=== PATIENT | female | born 1950 | race Caucasian/White ===

== ENCOUNTER 2017-02-18 16:59 | Emergency (ER) | payer MEDICAID, OTHER ==
[2017-02-18 17:13] VITALS: TEMP 97.7
--- NOTE | 2017-02-18 17:58 | C.PDOC ---
History Of Present Illness 66 y/o female brought to ED by EMS with complaints of facial swelling status post trip and fall while crossing the street just prior to arrival. Patient states she tripped on street and fell forward landing on hands and then face. Denies loc, dizziness, nausea, vomiting, change in sensation, visual changes or any other complaints at this time. Denies taking blood thinners. - HPI Time Seen by Provider: 02/18/17 17:25 Chief Complaint (Nursing): Trauma History Per: Patient, [employer] Se[employer] History/Exam Limitations: no limitations Onset/Duration Of Symptoms: Mins Location Of Injury: Right: Head Past Medical History Reviewed: Historical Data, Nursing Documentation, Vital Signs Vital Signs: Last Vital Signs Temp 97.7 F 02/18/17 19:49 Pulse 66 02/18/17 19:49 Resp 18 02/18/17 19:49 BP 137/84 02/18/17 19:49 Pulse Ox 99 02/18/17 19:49 - Medical History PMH: Diabetes, HTN, Hypercholesterolemia Surgical History: Appendectomy Family History: States: No Known Family Hx - Social History Hx Tobacco Use: No Hx Alcohol Use: No Hx Substance Use: No - Immunization History Hx Tetanus Toxoid Vaccination: Yes (2015) Hx Influenza Vaccination: Yes (12/2016) Hx Pneumococcal Vaccination: Yes Review Of Systems Constitutional: Negative for: Fever, Chills Eyes: Negative for: Vision Change Gastrointestinal: Negative for: Nausea, Vomiting Musculoskeletal: Positive for: Hand Pain Neurological: Positive for: Headache. Negative for: Weakness, Numbness, Dizziness Physical Exam - Physical Exam Appears: Non-toxic, No Acute Distress Skin: Warm, Dry, No Rash Head: Tenderness, Swelling (right side facial swelling), Abrasion (to right side of forehead) Eye(s): bilateral: PERRL, EOMI, Other ((+)b/l pterygium ) Ear(s): Bilateral: Normal Nose: Normal Oral Mucosa: Moist Throat: Normal, No Erythema, No Exudate Neck: Normal ROM, Supple Chest: Symmetrical Cardiovascular: Rhythm Regular Respiratory: Normal Breath Sounds, No Rales, No Rhonchi, No Wheezing Gastrointestinal/Abdominal: Soft, No Tenderness, No Guarding, No Rebound Extremity: Normal ROM, No Tenderness, Capillary Refill (<2 seconds), No Deformity Pulses: Left Radial: Normal, Right Radial: Normal Neurological/Psych: Oriented x3, Normal Speech, Normal Motor, Normal Sensation Gait: Steady ED Course And Treatment O2 Sat by Pulse Oximetry: 100 (RA) Pulse Ox Interpretation: Normal Progress Note: Tylenol ordered . On re-evaluation, pt notes she feels well. Denies any headache, dizziness, or visual changes. No vomiting. Pt requests to be discharge. Son at bedside, understands signs and symtpoms of concern. Clinical Data Management Manager used to ensure understanding. Disposition - Disposition Disposition: HOME/ ROUTINE Disposition Time: 19:40 Condition: STABLE Additional Instructions: Apply ice. Follow up with your doctor in 1-2 days. Instructions: Head Injury (ED) Forms: 1Lay ([place]izen [place]) Print Language: PASHTO - Clinical Impression Clinical Impression: Facial contusion - PA / WIRER / Resident Statement MD/DO has reviewed & agrees with the documentation as recorded. - Scribe Statement The provider has reviewed the documentation as recorded by the Cjibemilio Zelaya All medical record entries made by the Cjibemilio were at my direction and personally dictated by me. I have reviewed the chart and agree that the record accurately reflects my personal performance of the history, physical exam, medical decision making, and the department course for this patient. I have also personally directed, reviewed, and agree with the discharge instructions and disposition.
[2017-02-18 18:37] VITALS: RESP 18
--- NOTE | 2017-02-18 19:04 | CT ---
PROCEDURE: CT HEAD WITHOUT CONTRAST. HISTORY: trauma COMPARISON: None available. TECHNIQUE: Axial computed tomography images were obtained through the head/brain without intravenous contrast. Radiation dose: Total exam DLP = 760.8 mGy-cm. This CT exam was performed using one or more of the following dose reduction techniques: Automated exposure control, adjustment of the mA and/or kV according to patient size, and/or use of iterative reconstruction technique. FINDINGS: HEMORRHAGE: No intracranial hemorrhage. BRAIN: No mass effect or edema. The ba-white matter differentiation appears intact. Please note that MRI with diffusion imaging is more sensitive in the detection of acute ischemic event. VENTRICLES: No hydrocephalus. CALVARIUM: Unremarkable. PARANASAL SINUSES: Unremarkable as visualized. No significant inflammatory changes. MASTOID AIR CELLS: Unremarkable as visualized. No inflammatory changes. OTHER FINDINGS: Right frontal scalp hematoma. Right preseptal soft tissue swelling. IMPRESSION: Right frontal scalp hematoma. Right preseptal soft tissue swelling. No acute intracranial pathology identified.
--- NOTE | 2017-02-18 19:36 | CT ---
EXAM: CT Maxillofacial Without Intravenous Contrast EXAM DATE/TIME: 02/18/2017 6:21 PM CLINICAL HISTORY: 66 years old, female; Injury or trauma; Fall; Initial encounter; Abrasion and swelling; Eyelid and forehead; Uppeupper rightr right and lower right TECHNIQUE: Axial computed tomography images of the face without intravenous contrast. All CT scans at this facility use one or more dose reduction techniques, viz.: automated exposure control; ma/kV adjustment per patient size (including targeted exams where dose is matched to indication; i.e. head); or iterative reconstruction technique. Coronal and sagittal reformatted images were created and reviewed. COMPARISON: There are no prior studies for comparison. FINDINGS: Bones/joints: Visualized cranial vault is intact. There are no facial bone fractures. Soft tissues: There is a right frontal scalp hematoma. Deep soft tissues are unremarkable. Orbits: Globes are intact.Retrobulbar structures are symmetric. 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 There is mucoperiosteal thickening in left maxillary sinus. There is no acute sinusitis. Brain: No focal abnormalities are seen in visualized portion of the brain. IMPRESSION: Right frontal scalp hematoma, no underlying fracture; no orbital fractures
[2017-02-18 19:49] VITALS: BP 137/84; PULSE 66
[2017-02-18 21:39] VITALS: O2SAT 100
== END 2017-02-18 19:57 | disposition home or self-care (01) ==
LOC: C.ER 16:59
DX: S00.83XA Contusion of other part of head, initial encounter (principal); W01.0XXA Fall on same level from slipping, tripping and stumbling without subsequent striking against object, initial encounter; Y92.410 Unspecified street and highway as the place of occurrence of the external cause

== ENCOUNTER 2017-03-11 10:57 | Emergency (ER) | payer MEDICAID ==
--- NOTE | 2017-03-11 12:53 | C.PDOC ---
History Of Present Illness 66 y/o female with hx dm, htn, dyslipidemia, and circulation problems, on asa and ? antiplatelet aggregator/blood thinner. presents to ED with cc of right forehead pain and swelling (decreased from initial injury on 02/18), with burning sensation to skin. pt sts she had some pus coming from wound at one point but not now. pt also c/o dizziness, worse when standing up, better with supine position, persistent started about 4 days after injury, feels unsteady on feet. . pt has not followed up with pmd. pt sts it 'feels like something broken in her head.' Time Seen by Provider: 03/11/17 11:16 Chief Complaint (Nursing): Dizziness/Lightheaded History Per: Patient History/Exam Limitations: no limitations, language barrier (translators Jessica Coley (#[id number]) wilfred Otero([place]) #[id number] used for translation. ) Onset/Duration Of Symptoms: Days (14+) Current Symptoms Are (Timing): Still Present Activity At Onset Of Symptoms: Standing, Had Just Stood up, Change In Head Position Seizure Or Post-ictal Symptoms: None Possible Causative Factor(s): Vertigo, Other (recent head injury) Fall Associated With With Symptoms: No - Symptoms Of CVA Associated Symptoms: denies: Impaired Speech, Seizure Activity, New Confusion Recent Aspirin Use: Yes (Last Taken) Current Coumadin Use?: Unknown Recent Head Trauma: Yes Past Medical History Reviewed: Historical Data, Nursing Documentation, Vital Signs Vital Signs: Last Vital Signs Temp 97.6 F 03/11/17 13:37 Pulse 60 03/11/17 13:37 Resp 18 03/11/17 13:37 BP 102/67 03/11/17 13:37 Pulse Ox 95 03/11/17 20:23 - Medical History PMH: Diabetes, HTN, Hypercholesterolemia Surgical History: Appendectomy Family History: States: Unknown Family Hx - Social History Hx Tobacco Use: No Hx Alcohol Use: No Hx Substance Use: No - Immunization History Hx Tetanus Toxoid Vaccination: Yes (2015) Hx Influenza Vaccination: Yes Hx Pneumococcal Vaccination: Yes Review Of Systems Constitutional: Negative for: Fever, Chills ENT: Negative for: Ear Pain Cardiovascular: Negative for: Chest Pain, Palpitations Respiratory: Negative for: Cough, Shortness of Breath Gastrointestinal: Negative for: Nausea, Vomiting, Abdominal Pain Musculoskeletal: Positive for: Other (right sided headache). Negative for: Neck Pain, Shoulder Pain Neurological: Positive for: Dizziness. Negative for: Weakness, Numbness Physical Exam - Physical Exam Appears: Non-toxic, No Acute Distress Skin: Normal Color, Warm, Dry Head: Normacephalic, Tenderness (righth forehead), Swelling (small area of mild swelling and tenderness to right forehead with overlying scabbed area, no erythema, warmth, discharge. ) Eye(s): bilateral: Normal Inspection, PERRL, EOMI (no nystagmus, right gaze elicits dizzness), Other (no nystagmus. dizziness elicited with rightward gaze) Ear(s): Bilateral: Normal Oral Mucosa: Moist Neck: Supple Chest: Symmetrical, No Deformity, No Tenderness Cardiovascular: Rhythm Regular, No Murmur Respiratory: Normal Breath Sounds, No Rales, No Rhonchi, No Wheezing Gastrointestinal/Abdominal: Soft, No Tenderness Extremity: Normal ROM, Capillary Refill (less than 2 seconds ) Neurological/Psych: Oriented x3, Normal Speech, Normal Cognition, Normal Cranial Nerves, No Cerebellar Signs, Normal Motor, Normal Sensation, Other ( [id number] test normal, MORENO intact, negative pronator drift. pt feels unsteady when standing. ) Other Neurological Findings: Other (patient experiences dizziness when asked to stand) ED Course And Treatment O2 Sat by Pulse Oximetry: 95 Medical Decision Making Medical Decision Making: pts fs 342, did not take her morning dose of metformin, will give in ed. 240 pm pt with dizziness starting 4 days after head injury, and right forehead pain and headache. pt on asa and possible blood thinner; repeat head ct neg. pt given meclizine and reports dizziness improved. patient able to ambulate comfortably. concussion symptoms discussed with patient via parts interpreter Meño Otero #[id number]. pt offered walker and declined. pt advised to f/u with pmd and also with neurologist. pt expresses understanding. Disposition Counseled Patient/Family Regarding: Studies Performed, Diagnosis, Need For Followup, Rx Given - Disposition Referrals: Satinder Miller MD [Staff Provider] - Luis Barry MD [Non-Staff] - [facility] [Outside] Disposition: HOME/ ROUTINE Disposition Time: 14:42 Condition: IMPROVED Additional Instructions: Por favor tome meclizine (para mareos) segn lo prescrito y tylenol para el dolor. Por favor, cinthya un seguimiento con house mdico alvarez pronto ming sea posible , y tambin con el Dr. Miller, el neurlogo. Llame al servicio de conserjera para obtener ayuda con abram oliver de neurologa si no puede hacer abram con el Dr. Miller. Regrese a ER para cualquier sntoma que empeore. Please take meclizine (for dizziness) as prescribed and tylenol for pain. Please follow up with your doctor as soon as possible, and also with Dr Miller, the neurologist. Call [facility] service for help with a neurology appointment if unable to make one iwth Dr Miller. Return to ER for any worsening symptms. Prescriptions: Acetaminophen [Tylenol 325mg tab] 650 mg PO Q6 #50 tab Meclizine [Meclizine*] 25 mg PO Q8 #30 tab Instructions: Post Concussion Syndrome (ED), Dizziness (ED) Forms: Gen Discharge Inst U[place]ayan, ZhongSou ([place]) Print Language: URDU - Clinical Impression Clinical Impression: Post-concussion vertigo, Headache - PA / RISK ASSESSOR / Resident Statement MD/DO has reviewed & agrees with the documentation as recorded. - Scribe Statement The provider has reviewed the documentation as recorded by the Scribe (Chay Cunha) All medical record entries made by the Scribe were at my direction and personally dictated by me. I have reviewed the chart and agree that the record accurately reflects my personal performance of the history, physical exam, medical decision making, and the department course for this patient. I have also personally directed, reviewed, and agree with the discharge instructions and disposition.
--- NOTE | 2017-03-11 12:56 | CT ---
PROCEDURE: CT HEAD WITHOUT CONTRAST. HISTORY: dizzy s/p fall 2 weeks ago, on asa and ?plavix COMPARISON: 02/18/2017 TECHNIQUE: Axial computed tomography images were obtained through the head/brain without intravenous contrast. Radiation dose: Total exam DLP = 781.92 mGy-cm. This CT exam was performed using one or more of the following dose reduction techniques: Automated exposure control, adjustment of the mA and/or kV according to patient size, and/or use of iterative reconstruction technique. FINDINGS: HEMORRHAGE: No intracranial hemorrhage. BRAIN: No mass effect or edema. No atrophy or chronic microvascular ischemic changes. VENTRICLES: Unremarkable. No hydrocephalus. CALVARIUM: No calvarial fracture. Markedly decreased size of right frontal scalp hematoma compared to prior CT examination. No orbital hemorrhage. PARANASAL SINUSES: Unremarkable as visualized. No significant inflammatory changes. MASTOID AIR CELLS: Unremarkable as visualized. No inflammatory changes. OTHER FINDINGS: None. IMPRESSION: No intracranial hemorrhage. Right frontal scalp hematoma markedly decreased in size. Otherwise unremarkable examination.
[2017-03-11 13:37] VITALS: BP 102/67; PULSE 60; RESP 18; TEMP 97.6
[2017-03-11 14:40] VITALS: O2SAT 95
== END 2017-03-11 15:03 | disposition home or self-care (01) ==
LOC: C.ER 10:57
DX: R51 Headache (principal); R42 Dizziness and giddiness; I10 Essential (primary) hypertension; E11.9 Type 2 diabetes mellitus without complications; E78.00 Pure hypercholesterolemia, unspecified

== ENCOUNTER 2017-05-24 08:11 | Inpatient (IN) | payer MEDICAID ==
--- NOTE | 2017-05-24 08:44 | C.PDOC ---
History Of Present Illness 66 yo female w/PMHx of HTN, NIDDM, OA, gastritis, hyperlipidemia, depression was sent from Clinic for evaluation of Left knee pain associated with Left lower leg pain, swelling redness gradually developed for past week. Pt describes pain is mostly over medial aspect left knee radiating down to Left lower leg, worse with weight bearing. Otherwise, pt denies recent illness, known trauma or injury to left knee/leg, headache, dizziness, neck pain, CP, SOB , dyspnea, diaphoresis, palpitation, denies abd. pain, N/V, back pain, deformity , weakness, sensory or vascular deficits to left leg. Ambulate to Ed for evaluation, not in any apparent distress. Time Seen by Provider: 05/24/17 08:15 Chief Complaint (Nursing): Lower Extremity Problem/Injury History Per: Patient Onset/Duration Of Symptoms: Gradual Past Medical History Reviewed: Historical Data, Nursing Documentation, Vital Signs Vital Signs: Last Vital Signs Temp 98 F 05/24/17 12:25 Pulse 77 05/24/17 12:25 Resp 18 05/24/17 12:25 BP 128/64 05/24/17 12:25 Pulse Ox 96 05/24/17 12:25 - Medical History PMH: Diabetes, Gastritis ("chronic"), HTN, Hypercholesterolemia, Osteoporosis Surgical History: Appendectomy Family History: States: Unknown Family Hx - Social History Hx Tobacco Use: No Hx Alcohol Use: No Hx Substance Use: No - Immunization History Hx Tetanus Toxoid Vaccination: Yes (2015) Hx Influenza Vaccination: Yes Hx Pneumococcal Vaccination: Yes Review Of Systems Except As Marked, All Systems Reviewed And Found Negative. Constitutional: Negative for: Fever, Chills Eyes: Negative for: Vision Change ENT: Negative for: Throat Pain, Throat Swelling Cardiovascular: Negative for: Chest Pain, Palpitations, Paroxysmal Noc. Dyspnea , Edema, Light Headedness Respiratory: Negative for: Cough, Shortness of Breath, Wheezing Gastrointestinal: Negative for: Nausea, Vomiting, Abdominal Pain, Diarrhea Genitourinary: Negative for: Dysuria Musculoskeletal: Positive for: Leg Pain (left lower), Other (Left knee) Skin: Positive for: Rash. Negative for: Bruising Neurological: Negative for: Weakness, Numbness, Altered Mental Status Physical Exam - Physical Exam Appears: Well, Non-toxic, No Acute Distress Skin: Normal Color, Warm, Dry, No Rash Head: Normacephalic Eye(s): bilateral: PERRL Nose: No Flaring, No Discharge Oral Mucosa: Moist Throat: No Erythema, No Drooling Neck: Trachea Midline, Supple Cardiovascular: Rhythm Regular, No Murmur, No JVD Respiratory: No Decreased Breath Sounds, No Accessory Muscle Use, No Stridor, No Wheezing Gastrointestinal/Abdominal: Soft, No Tenderness, No Distention, No Guarding Back: No CVA Tenderness Extremity: Normal ROM (LLE), Tenderness (medial aspect left knee with mild edema.), Calf Tenderness (Left), No Deformity, Swelling (mild diffuse left lower leg with scattedr mild erythema distal anterior tibia.) Neurological/Psych: Oriented x3, Normal Speech, Normal Motor, Normal Sensation, Normal Reflexes ED Course And Treatment - Laboratory Results Result Diagrams: 05/24/17 08:57 05/24/17 08:57 Lab Interpretation: No Acute Changes ECG: Interpreted By Me, Viewed By Me ECG Rhythm: Sinus Rhythm ECG Interpretation: Normal Interpretation Of ECG: SR@76/min, NAD, T wave inversion in AVL, V2-V3, no acute ST-T changes. O2 Sat by Pulse Oximetry: 98 Pulse Ox Interpretation: Normal Progress Note: At 10:50, Results discussesd with US tech (+) DVT. Case discussed with Hospitalist and admission arranged. Disposition - Disposition Disposition: HOSPITALIZED Disposition Time: 11:10 Condition: STABLE - Clinical Impression Clinical Impression: Deep venous thrombosis of lower extremity
[2017-05-24 09:02] LABS: BASO # 0.1 K/uL (0.0-0.2); EOS # 0.3 K/uL (0.0-0.7); EOS % 4.5 % (0.0-4.0); LYMPH # 1.7 K/uL (1.0-4.3); LYMPH % 23.6 % (20.0-40.0); MEAN CELL VOLUME 84.7 fL (81.0-99.0); MEAN PLATELET VOLUME 9.4 fL (7.2-11.7); MONO # 0.4 K/uL (0.0-0.8); MONO % 5.2 % (0.0-10.0); NEUT # 4.8 K/uL (1.8-7.0); NEUT % 65.7 % (50.0-75.0); RBC 3.92 Mil/uL (3.80-5.20); RED CELL DISTRIBUTION WIDTH 14.6 % (11.5-14.5); WHITE BLOOD COUNT 7.4 K/uL (4.8-10.8)
[2017-05-24 09:13] LABS: ALB/GLOB RATIO 1.2 (1.0-2.1); ALBUMIN 4.1 g/dL (3.5-5.0); ALT/SGPT 22 U/L (9-52); AST/SGOT 20 U/L (14-36); BLOOD UREA NITROGEN 21 mg/dL (7-17); CALCIUM 8.9 mg/dl (8.6-10.4); GFR AFRICAN-AMERICAN > 60; GFR NON-AFRICAN AMERICAN > 60
[2017-05-24 09:20] LABS: PROTHROMBIN TIME 11.1 SECONDS (9.7-12.2)
[2017-05-24 10:19] LABS: SQUAMOUS EPITHIAL 4 /hpf (0-5); URINE BILIRUBIN NEGATIVE (NEGATIVE); URINE BLOOD NEGATIVE (NEGATIVE); URINE CLARITY Hazy (Clear); URINE COLOR Yellow (YELLOW); URINE GLUCOSE (UA) 2+ mg/dL (Normal); URINE LEUKOCYTE ESTERASE NEG Leu/uL (Negative); URINE PROTEIN NEGATIVE (NEGATIVE); URINE UROBILINOGEN NORMAL mg/dL (0.2-1.0)
--- NOTE | 2017-05-24 10:41 | RAD ---
HISTORY: SOB COMPARISON: No prior. TECHNIQUE: Chest PA and lateral FINDINGS: LUNGS: No active pulmonary disease. PLEURA: No significant pleural effusion identified. No pneumothorax apparent. CARDIOVASCULAR: Normal. OSSEOUS STRUCTURES: No significant abnormalities. VISUALIZED UPPER ABDOMEN: Normal. OTHER FINDINGS: None. IMPRESSION: No active disease.
--- NOTE | 2017-05-24 10:41 | RAD ---
PROCEDURE: Left Knee Radiographs. HISTORY: Pain. COMPARISON: None. FINDINGS: BONES: Normal. No fracture. JOINTS: Normal. No osteoarthritis. JOINT EFFUSION: None. OTHER FINDINGS: None. IMPRESSION: Normal radiographs of the left knee.
[2017-05-24] MEDS ORDERED: guaiFENesin-Codeine 100-10mg/5ml Syrup (10ml) UD PO PRN ×2 (12:23→12:48)
--- NOTE | 2017-05-24 12:26 | CP.PCM.HP ---
<Erki Rice Pio - Last Filed: 05/24/17 13:58> History of Present Illness - History of Present Illness History of Present Illness: CC: "My leg hurts" HPI: Mrs Osorio is a 66 year old female with a PMHx of HTN, NIDDM, OA, gastritis, hyperlipidemia, who presents to [facility] ER for left leg pain from the knee down to the calf with the pain ending above her left ankle. She states the pain started 4 days ago abruptly. She denies recent travel or recent immobilization. She denies recent hospitalization. The pain is most prominent in the medial aspect of her left knee. She states she went to a clinic in [place] yesterday and was referred to the ED. She denies shortness of breath. Additionally, she complains of a dry cough that also began 4 days ago. She endorsed weight loss of 10 lbs in the last 6 months. She denies feeling fatigued , chest pain, nausea, vomiting, fever, diarrhea, dysuria, or flank pain. At baseline patient is able to ambulate without difficulty. Her last mammogram in was normal. She has never had a colonoscopy. 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 absent: Hemoptysis - Gastrointestinal Gastrointestinal: absent: Abdominal Pain, Bloating, Constipation, Diarrhea - Genitourinary Genitourinary: absent: Dysuria - Reproductive: Female Reproductive:Female: Post Menopausal - Integumentary Integumentary: absent: Bleeding Lesions Past Patient History - Infectious Disease Hx of Infectious Diseases: None - Past Social History Smoking Status: Never Smoked - CARDIAC Hx Hypercholesterolemia: Yes Hx Hypertension: Yes - ENDOCRINE/METABOLIC Hx Diabetes Mellitus Type 2: Yes - MUSCULOSKELETAL/RHEUMATOLOGICAL Hx Osteoporosis: Yes - GASTROINTESTINAL Hx Gastritis: Yes ("chronic") - GENITOURINARY/GYNECOLOGICAL Hx Genitourinary Disorders: Yes Other/Comment: Descent of the ovaries. - PSYCHIATRIC Hx Substance Use: No - SURGICAL HISTORY Hx Appendectomy: Yes - ANESTHESIA Hx Anesthesia: Yes Hx Anesthesia Reactions: No Meds Allergies/Adverse Reactions: Allergies Allergy/AdvReac Type Severity Reaction Status Date / Time No Known Allergies Allergy Verified 05/24/17 08:14 Physical Exam - Constitutional Appears: Well, Non-toxic, No Acute Distress - Head Exam Head Exam: ATRAUMATIC, NORMAL INSPECTION - Eye Exam Eye Exam: EOMI Pupil Exam: PERRL - ENT Exam ENT Exam: Mucous Membranes Moist - Neck Exam Neck exam: Positive for: Normal Inspection. Negative for: Lymphadenopathy, Tenderness - Respiratory Exam Respiratory Exam: Clear to Auscultation Bilateral, NORMAL BREATHING PATTERN. absent: Rales, Rhonchi, Wheezes - Cardiovascular Exam Cardiovascular Exam: REGULAR RHYTHM, +S1, +S2. absent: Bradycardia, Tachycardia , JVD, Systolic Murmur - GI/Abdominal Exam GI & Abdominal Exam: Normal Bowel Sounds, Soft. absent: Distended, Firm, Guarding, Hernia, Mass, Rigid, Tenderness - Extremities Exam Extremities exam: Positive for: calf tenderness, normal capillary refill, normal inspection, tenderness, pedal pulses present Additional comments: Tender to palpation around left knee and left calm Bernadette's sign positive No edema/swelling noted compared to right leg No erythema noted - Back Exam Back exam: NORMAL INSPECTION - Neurological Exam Neurological exam: Oriented x3 - Psychiatric Exam Psychiatric exam: Normal Affect, Normal Mood - Skin Skin Exam: Intact, Normal Color, Warm Additional comments: Some telangiectasia's noted in LE B/L Some very mild ecchymosis noted in LE B/L Results - Vital Signs Recent Vital Signs: Last Vital Signs Temp 97.6 F 05/24/17 08:16 Pulse 79 05/24/17 08:16 Resp 16 05/24/17 08:16 BP 128/79 05/24/17 08:16 Pulse Ox 98 05/24/17 11:23 - Labs Result Diagrams: 05/24/17 08:57 05/24/17 08:57 Labs: Laboratory Results - last 24 hr 05/24/17 05/24/17 05/24/17 08:57 08:57 08:57 WBC 7.4 RBC 3.92 Hgb 11.0 Hct 33.2 L MCV 84.7 MCH 28.0 MCHC 33.0 RDW 14.6 H Plt Count 269 MPV 9.4 Neut % (Auto) 65.7 Lymph % (Auto) 23.6 Yates % (Auto) 5.2 Eos % (Auto) 4.5 H Baso % (Auto) 1.0 Neut # (Auto) 4.8 Lymph # (Auto) 1.7 Yates # (Auto) 0.4 Eos # (Auto) 0.3 Baso # (Auto) 0.1 PT 11.1 INR 1.0 APTT 30 Sodium 142 Potassium 4.1 Chloride 103 Carbon Dioxide 25 Anion Gap 18 BUN 21 H Creatinine 0.8 Est GFR ( Amer) > 60 Est GFR (Non-Af Amer) > 60 Random Glucose 217 H Calcium 8.9 Total Bilirubin 0.4 AST 20 ALT 22 Alkaline Phosphatase 77 Total Protein 7.4 Albumin 4.1 Globulin 3.3 Albumin/Globulin Ratio 1.2 Urine Color Urine Clarity Urine pH Ur Specific [place] Urine Protein Urine Glucose (UA) Urine Ketones Urine Blood Urine Nitrate Urine Bilirubin Urine Urobilinogen Ur Leukocyte Esterase Urine WBC (Auto) Urine RBC (Auto) Ur Squamous Epith Cells 05/24/17 09:51 WBC RBC Hgb Hct MCV MCH MCHC RDW Plt Count MPV Neut % (Auto) Lymph % (Auto) Yates % (Auto) Eos % (Auto) Baso % (Auto) Neut # (Auto) Lymph # (Auto) Yates # (Auto) Eos # (Auto) Baso # (Auto) PT INR APTT Sodium Potassium Chloride Carbon Dioxide Anion Gap BUN Creatinine Est GFR ( Amer) Est GFR (Non-Af Amer) Random Glucose Calcium Total Bilirubin AST ALT Alkaline Phosphatase Total Protein Albumin Globulin Albumin/Globulin Ratio Urine Color Yellow Urine Clarity Hazy Urine pH 5.0 Ur Specific [place] 1.026 Urine Protein Negative Urine Glucose (UA) 2+ H Urine Ketones Negative Urine Blood Negative Urine Nitrate Negative Urine Bilirubin Negative Urine Urobilinogen Normal Ur Leukocyte Esterase Neg Urine WBC (Auto) 1 Urine RBC (Auto) 1 Ur Squamous Epith Cells 4 Assessment & Plan (1) Deep venous thrombosis of lower extremity Assessment and Plan: Duplex Scan of LE showed acute clot - Pending official report * Non-provoked - No significant immobilization, trauma or recent major surgery * Last mammogram 11/2016 normal. No prior colonoscopy. Reports 10 lb weight loss in last 6 months. Denies fatigue. Consult Heme, Dr Ramirez. Will follow recs. Consult Vascular, Dr Callejas. Will follow recs. Labs/Diagnostics: F/U YANCY screen, Antithrombin III Ab, Factor V, Lupus Anticoag, Protein C activity and Ag, Protein S activity and Ag, Prothrombin Gene, Antiphospholipid Ab Imaging: F/U Chest CT Angio F/U CT abd/pelvis w/ IV contrast Meds: Heparin drip DVT protocol Status: Acute Priority: High (2) Cough Assessment and Plan: Complains of dry cough CXR: No active disease F/U Blood Cx F/U Mycoplasma, Legionella tests Meds: Gauifenesin/Codeine 5ml PO Q6H PRN Status: Acute Priority: Medium (3) Non-insulin dependent type 2 diabetes mellitus Assessment and Plan: HOLD home metformin 1000mg PO BID due to imaging Accuchecks ACHS ISS - medium dose Hypoglycemia protocol Status: Acute Priority: Medium (4) Hypertension Assessment and Plan: BP well controlled Cont home med Lisinopril 10mg PO QD Cont home med HCTZ 12.5mg PO QD Status: Acute Priority: High (5) Hyperlipidemia Assessment and Plan: Cont home med Simvastatin 40mg PO QD * Pharmacy will switch to Crestor Status: Acute Priority: Medium (6) PAD (peripheral artery disease) Assessment and Plan: Cont home med Pentoxifylline 400mg PO BID Cont home aspirin 81mg PO QD Status: Acute Priority: Medium (7) Prophylactic measure Assessment and Plan: Heart healthy diet with mod carb consistent No GI prophylaxis indicated On heparin drip for DVT SCDs contraindicated Cont home MV Status: Acute Priority: Low <Oneida Duarte V - Last Filed: 05/24/17 15:06> Results - Vital Signs Recent Vital Signs: Last Vital Signs Temp 98 F 05/24/17 12:25 Pulse 77 05/24/17 12:25 Resp 18 05/24/17 12:25 BP 128/64 05/24/17 12:25 Pulse Ox 98 05/24/17 14:26 - Labs Result Diagrams: 05/24/17 08:57 05/24/17 08:57 Labs: Laboratory Results - last 24 hr 05/24/17 05/24/17 05/24/17 08:57 08:57 08:57 WBC 7.4 RBC 3.92 Hgb 11.0 Hct 33.2 L MCV 84.7 MCH 28.0 MCHC 33.0 RDW 14.6 H Plt Count 269 MPV 9.4 Neut % (Auto) 65.7 Lymph % (Auto) 23.6 Yates % (Auto) 5.2 Eos % (Auto) 4.5 H Baso % (Auto) 1.0 Neut # (Auto) 4.8 Lymph # (Auto) 1.7 Yates # (Auto) 0.4 Eos # (Auto) 0.3 Baso # (Auto) 0.1 PT 11.1 INR 1.0 APTT 30 Sodium 142 Potassium 4.1 Chloride 103 Carbon Dioxide 25 Anion Gap 18 BUN 21 H Creatinine 0.8 Est GFR ( Amer) > 60 Est GFR (Non-Af Amer) > 60 Random Glucose 217 H Calcium 8.9 Total Bilirubin 0.4 AST 20 ALT 22 Alkaline Phosphatase 77 Total Protein 7.4 Albumin 4.1 Globulin 3.3 Albumin/Globulin Ratio 1.2 Urine Color Urine Clarity Urine pH Ur Specific [place] Urine Protein Urine Glucose (UA) Urine Ketones Urine Blood Urine Nitrate Urine Bilirubin Urine Urobilinogen Ur Leukocyte Esterase Urine WBC (Auto) Urine RBC (Auto) Ur Squamous Epith Cells 05/24/17 09:51 WBC RBC Hgb Hct MCV MCH MCHC RDW Plt Count MPV Neut % (Auto) Lymph % (Auto) Yates % (Auto) Eos % (Auto) Baso % (Auto) Neut # (Auto) Lymph # (Auto) Yates # (Auto) Eos # (Auto) Baso # (Auto) PT INR APTT Sodium Potassium Chloride Carbon Dioxide Anion Gap BUN Creatinine Est GFR ( Amer) Est GFR (Non-Af Amer) Random Glucose Calcium Total Bilirubin AST ALT Alkaline Phosphatase Total Protein Albumin Globulin Albumin/Globulin Ratio Urine Color Yellow Urine Clarity Hazy Urine pH 5.0 Ur Specific [place] 1.026 Urine Protein Negative Urine Glucose (UA) 2+ H Urine Ketones Negative Urine Blood Negative Urine Nitrate Negative Urine Bilirubin Negative Urine Urobilinogen Normal Ur Leukocyte Esterase Neg Urine WBC (Auto) 1 Urine RBC (Auto) 1 Ur Squamous Epith Cells 4 Attending/Attestation - Attestation I have personally seen and examined this patient.: Yes I have fully participated in the care of the patient.: Yes I have reviewed all pertinent clinical information: Yes Notes (Text): Patient seen, examined and case discussed with medical support assistant. Patient seen with her sister at bedside. Patient reports four day history of dry cough and associated pain over the left knee around. In the ED, patient completed knee xray and ultrasound of the left lower extremity. Per venous doppler, patient has deep vein thrombosis extending to the common femoral on the official report. We have ordered the workup for hypercoaguability prior to starting chemical anticoagulation. Patient has had no recent falls, no recent surgical intervention, obese habitus, patient is not a smoker, not exposed to second hand smoke, and no family history of cancer Patient had mechanical fall in Feb 2017 visited the ED noted in the EMR. Patient reports she completed her last mammography in Feb 2017, reports it was normal. patient has not had colonoscopy. Patient denies any post-menopausal bleeding. patient denies any fatigue, denies dyspnea on exertion, reports she is ambulatory without assistive device. addendum: performed breast exam with resident at bedside with permission of patient. B/l breast benign, no masses, no nodules, no nipple discharge, no axillary lymphadenopathy, no peau de orange appearance Left lower extremity is visibly more swollen compared to right lower extremity Assessment/Plan (1) Deep venous thrombosis of lower extremity Assessment and Plan: Duplex Scan of LE showed acute clot - Pending official report * Non-provoked - No significant immobilization, trauma or recent major surgery * Last mammogram 11/2016 normal. No prior colonoscopy. Reports 10 lb weight loss in last 6 months. Denies fatigue. Consult Heme, Dr Nataly Ramirez-->help appreciated Consult Vascular, Dr Callejas-->help appreciated Labs/Diagnostics: * F/U YANCY screen, Antithrombin III Ab, Factor V, Lupus Anticoag, Protein C activity and Ag, Protein S activity and Ag, Prothrombin Gene, Antiphospholipid Ab Imaging: * Will order echocardiogram check for right heart strain * F/U Chest CT Angio r/o PE * F/U CT abd/pelvis w/ IV contrast r/o occult malignancy Meds: * Heparin drip DVT protocol Status: Acute Priority: High (2) Cough Assessment and Plan: * Complains of dry cough * CXR: No active disease * F/U Blood Cx * F/U Mycoplasma pneumoniae IgM, Legionella tests Meds: * Guafenesin /Codeine 5ml PO Q6H PRN Status: Acute Priority: Medium (3) Non-insulin dependent type 2 diabetes mellitus Assessment and Plan: * HOLD home metformin 1000mg PO BID due to imaging * Accuchecks ACHS * ISS - medium dose * Hypoglycemia protocol * Check lipid panel, a1c * c/w Lisinopril 10mg PO QDaily * c/w Crestor 10mg POqHS * c/w Aspirin 81mg PO daily Status: Chronic Priority: Medium (4) Hypertension Assessment and Plan: * BP well controlled * Cont home med Lisinopril 10mg PO QDaily * Cont home med HCTZ 12.5mg PO QDaily Status: Chronic Priority: High (5) Hyperlipidemia Assessment and Plan: * Cont home med Simvastatin 40mg PO QD--->not available on hospital formulary * Pharmacy will switch to Crestor equivalent during hospitalization Status: Acute Priority: Medium (6) PAD (peripheral artery disease) Assessment and Plan: * Will discontinue home med Pentoxifylline 400mg PO BID * Cont home aspirin 81mg PO QD * NO SCD secondary to PAD Status: Chronic Priority: Medium (7) Prophylactic measure Assessment and Plan: * Heart healthy diet with mod carb consistent * No GI prophylaxis indicated * On heparin drip for DVT * SCDs contraindicated Status: Acute Priority: Low
[2017-05-24] MEDS ORDERED: Iodixanol 320 MG/ML 100 ML BOTTLE IV ONE (13:14)
[2017-05-24] MEDS: Heparin25000 units/250ml 1/2NS 25,000 UNITS/250 ML BAG IV PRN (13:45)
[2017-05-24] MEDS ORDERED: Glucagon Recombinant 1 mg Inj IM PRN (14:04)
[2017-05-24] MEDS ORDERED: Dextrose 50% SYRINGE Inj (50 ml) IV PRN (14:04)
--- NOTE | 2017-05-24 14:51 | CT ---
PROCEDURE: CT Chest with contrast (Pulmonary Angiogram) and CT abdomen and pelvis HISTORY: sob; left leg DVT COMPARISON: None available. TECHNIQUE: Axial computed tomography images were obtained of the chest in the pulmonary arterial phase of enhancement. Coronal and sagittal reformatted images were created and reviewed. Following appropriate delay, images of the abdomen and pelvis were acquired at 2.5 mm intervals. Sagittal and coronal images were reformatted from the axial scan. Intravenous contrast dose: 100 mL Visipaque 320 Radiation dose: Total exam DLP = 906.96 mGy-cm. This CT exam was performed using one or more of the following dose reduction techniques: Automated exposure control, adjustment of the mA and/or kV according to patient size, and/or use of iterative reconstruction technique. FINDINGS: PULMONARY ARTERIES: Unremarkable. No pulmonary embolism. AORTA: No acute findings. No thoracic aortic aneurysm. LUNGS: Unremarkable. No nodule, mass or pulmonary consolidation. PLEURAL SPACES: Unremarkable. No effusion or pneuomothorax. HEART: Unremarkable. No cardiomegaly. No significant pericardial effusion. LYMPH NODES: No lymphadenopathy. BONES, CHEST WALL: Unremarkable. No fracture or destructive lesion OTHER FINDINGS: Liver: Normal size, contour and attenuation. Nonspecific ovoid 2.4 x 1.8 cm low-density lesion in the lateral segment of the left hepatic lobe. No other mass. No biliary dilatation. Gallbladder: Unremarkable, without mural thickening or calcified stones. Spleen: Normal size, contour and attenuation. No mass. Pancreas: No mass. No ductal dilatation. Adrenals: No adrenal mass Kidneys: 8 mm left upper pole angiomyolipoma. No other mass. No calculus or hydronephrosis. Peritoneum: No ascites. No pneumoperitoneum. Lymph nodes: No retroperitoneal or pelvic lymphadenopathy. Vascular: No abdominal aortic aneurysm. There is a filling defect seen in the left common femoral vein, suspicious for deep venous thrombosis. No other venous filling defect is appreciated on this examination. Bladder: Unremarkable. Reproductive: Normal postmenopausal uterus. Bones: No acute fracture. IMPRESSION: No evidence of pulmonary embolism. No pulmonary infiltrate. No pulmonary mass. Nonspecific 2.4 cm low-density lesion in the left lobe of the liver. Additional incidental findings as above.
[2017-05-24 15:02] VITALS: RESP 20
[2017-05-24] MEDS: (Novolin R) Insulin Human Regular 100 units/ml vial SC SCH ×2 (16:30→22:01)
--- NOTE | 2017-05-24 17:47 | CP.PCM.CON ---
History of Present Illness - History of Present Illness History of Present Illness: SURGERY CONSULT FOR DR. TYLER 66F presents with left leg pain. Pain is located below the knee and started 4 days ago. Patient is able to ambulate, she denies sensory loss and motor loss. Denies any history of long travels. Denies chest pain, shortness of breath. 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 - PSYCHIATRIC Hx Substance Use: No - SURGICAL HISTORY Hx Appendectomy: Yes - ANESTHESIA Hx Anesthesia: Yes Hx Anesthesia Reactions: No Meds Allergies/Adverse Reactions: Allergies Allergy/AdvReac Type Severity Reaction Status Date / Time No Known Allergies Allergy Verified 05/24/17 08:14 - Medications Medications: Current Medications Aspirin (Aspirin Chewable) 81 mg PO DAILY JOAO Calcium/Vitamin D (Oyster Shell Calcium/Vitamin D 500 Mg-200 Iu) 1 tab PO DAILY JOAO Dextrose (Dextrose 50% Inj) 0 ml IV STAT PRN; Protocol PRN Reason: Hypoglycemia Protocol Dextrose (Glutose 15) 15 gm PO ONCE PRN; Protocol PRN Reason: Hypoglycemia Protocol Glucagon (Glucagen Diagnostic Kit) 1 mg IM STAT PRN; Protocol PRN Reason: Hypoglycemia Protocol Guaifenesin/Codeine Phosphate (Guaifenesin/Codeine) 5 ml PO Q6H PRN PRN Reason: Cough and congestion Hydrochlorothiazide (Microzide) 12.5 mg PO DAILY [facility] Heparin Sodium/Sodium Chloride (Heparin 02687 Units/250ml 1/2 Normal Saline) 25 ,000 units in 250 mls @ 14.207 mls/hr IV .[id number] PRN; Protocol; 18 UNITS/KG/HR PRN Reason: PROTOCOL Last Admin: 05/24/17 13:45 Dose: 18 units/kg/hr, 14.207 mls/hr Dextrose (Dextrose 5% In Water 1000 Ml) 1,000 mls @ 0 mls/hr IV .Q0M PRN; Protocol; Per Protocol PRN Reason: Hypoglycemia Protocol Insulin Human Regular (Novolin R) 0 unit SC ACHS JOAO PRN Reason: Protocol Last Admin: 05/24/17 16:30 Dose: Not Given Lisinopril (Zestril) 10 mg PO DAILY [facility] Multivitamins (Hexavitamin) 1 tab PO DAILY [facility] Pneumococcal Polyvalent Vaccine (Pneumovax 23 Vaccine) 0.5 ml IM .ONCE ONE Stop: 05/25/17 10:01 Rosuvastatin Calcium (Crestor) 10 mg PO HS [facility] Physical Exam - Respiratory Exam Respiratory Exam: Clear to Auscultation Bilateral, NORMAL BREATHING PATTERN - Cardiovascular Exam Cardiovascular Exam: REGULAR RHYTHM, +S1, +S2 - GI/Abdominal Exam GI & Abdominal Exam: Soft. absent: Distended, Firm, Guarding, Rebound, Rigid, Tenderness - Extremities Exam Additional comments: left leg pain, no swelling, no erythema - Neurological Exam Neurological exam: Alert - Psychiatric Exam Psychiatric exam: Normal Affect, Normal Mood Results - Vital Signs Recent Vital Signs: Last Vital Signs Temp 97.6 F 05/24/17 15:01 Pulse 76 05/24/17 15:01 Resp 20 05/24/17 15:01 BP 123/88 05/24/17 15:01 Pulse Ox 98 05/24/17 15:01 - Labs Result Diagrams: 05/24/17 08:57 05/24/17 08:57 Labs: Laboratory Results - last 24 hr 05/24/17 05/24/17 05/24/17 08:57 08:57 08:57 WBC 7.4 RBC 3.92 Hgb 11.0 Hct 33.2 L MCV 84.7 MCH 28.0 MCHC 33.0 RDW 14.6 H Plt Count 269 MPV 9.4 Neut % (Auto) 65.7 Lymph % (Auto) 23.6 [place] % (Auto) 5.2 Eos % (Auto) 4.5 H Baso % (Auto) 1.0 Neut # (Auto) 4.8 Lymph # (Auto) 1.7 [place] # (Auto) 0.4 Eos # (Auto) 0.3 Baso # (Auto) 0.1 PT 11.1 INR 1.0 APTT 30 Sodium 142 Potassium 4.1 Chloride 103 Carbon Dioxide 25 Anion Gap 18 BUN 21 H Creatinine 0.8 Est GFR ( Amer) > 60 Est GFR (Non-Af Amer) > 60 POC Glucose (mg/dL) Random Glucose 217 H Calcium 8.9 Total Bilirubin 0.4 AST 20 ALT 22 Alkaline Phosphatase 77 Total Protein 7.4 Albumin 4.1 Globulin 3.3 Albumin/Globulin Ratio 1.2 Urine Color Urine Clarity Urine pH Ur Specific [place] Urine Protein Urine Glucose (UA) Urine Ketones Urine Blood Urine Nitrate Urine Bilirubin Urine Urobilinogen Ur Leukocyte Esterase Urine WBC (Auto) Urine RBC (Auto) Ur Squamous Epith Cells 05/24/17 05/24/17 09:51 16:29 WBC RBC Hgb Hct MCV MCH MCHC RDW Plt Count MPV Neut % (Auto) Lymph % (Auto) [place] % (Auto) Eos % (Auto) Baso % (Auto) Neut # (Auto) Lymph # (Auto) [place] # (Auto) Eos # (Auto) Baso # (Auto) PT INR APTT Sodium Potassium Chloride Carbon Dioxide Anion Gap BUN Creatinine Est GFR ( Amer) Est GFR (Non-Af Amer) POC Glucose (mg/dL) 103 Random Glucose Calcium Total Bilirubin AST ALT Alkaline Phosphatase Total Protein Albumin Globulin Albumin/Globulin Ratio Urine Color Yellow Urine Clarity Hazy Urine pH 5.0 Ur Specific [place] 1.026 Urine Protein Negative Urine Glucose (UA) 2+ H Urine Ketones Negative Urine Blood Negative Urine Nitrate Negative Urine Bilirubin Negative Urine Urobilinogen Normal Ur Leukocyte Esterase Neg Urine WBC (Auto) 1 Urine RBC (Auto) 1 Ur Squamous Epith Cells 4 Assessment & Plan - Assessment and Plan (Free Text) Assessment: 66F with Left common femoral vein as seen on CT Plan: - continue anticoagulation - monitor for swelling Discussed with Dr. Júnior Solorzano, PGY2
[2017-05-25] MEDS: Heparin25000 units/250ml 1/2NS 25,000 UNITS/250 ML BAG IV PRN (07:03)
--- NOTE | 2017-05-25 08:48 | CP.PCM.PN ---
Subjective - Date & Time of Evaluation Date of Evaluation: 05/25/17 Time of Evaluation: 08:45 - Subjective Subjective: Vascular Surgery: Dr. Callejas Pt seen and examined. No acute overnight events. States she feels better and pain is improved. Pt states her left leg looks a lot less swollen, admits to ambulating w/o difficulty. Denies F/C. Objective - Vital Signs/Intake and Output Vital Signs (last 24 hours): Temp Pulse Resp BP Pulse Ox 98.2 F 80 20 106/70 96 05/25/17 07:42 05/25/17 07:42 05/25/17 07:42 05/25/17 07:42 05/25/17 07:42 Intake and Output: 05/25/17 05/25/17 06:59 18:59 Intake Total 300 250 Balance 300 250 - Medications Medications: Current Medications Aspirin (Aspirin Chewable) 81 mg PO DAILY [facility] Calcium/Vitamin D (Oyster Shell Calcium/Vitamin D 500 Mg-200 Iu) 1 tab PO DAILY [facility] Dextrose (Dextrose 50% Inj) 0 ml IV STAT PRN; Protocol PRN Reason: Hypoglycemia Protocol Dextrose (Glutose 15) 15 gm PO ONCE PRN; Protocol PRN Reason: Hypoglycemia Protocol Glucagon (Glucagen Diagnostic Kit) 1 mg IM STAT PRN; Protocol PRN Reason: Hypoglycemia Protocol Guaifenesin/Codeine Phosphate (Guaifenesin/Codeine) 5 ml PO Q6H PRN PRN Reason: Cough and congestion Hydrochlorothiazide (Microzide) 12.5 mg PO DAILY [facility] Heparin Sodium/Sodium Chloride (Heparin 24895 Units/250ml 1/2 Normal Saline) 25 ,000 units in 250 mls @ 14.207 mls/hr IV .[id number] PRN; Protocol; 18 UNITS/KG/HR PRN Reason: PROTOCOL Last Admin: 05/25/17 07:03 Dose: 18 units/kg/hr, 14.207 mls/hr Dextrose (Dextrose 5% In Water 1000 Ml) 1,000 mls @ 0 mls/hr IV .Q0M PRN; Protocol; Per Protocol PRN Reason: Hypoglycemia Protocol Insulin Human Regular (Novolin R) 0 unit SC ACHS [facility] PRN Reason: Protocol Last Admin: 05/24/17 22:01 Dose: Not Given Lisinopril (Zestril) 10 mg PO DAILY [facility] Multivitamins (Hexavitamin) 1 tab PO DAILY [facility] Pneumococcal Polyvalent Vaccine (Pneumovax 23 Vaccine) 0.5 ml IM .ONCE ONE Stop: 05/25/17 10:01 Rosuvastatin Calcium (Crestor) 10 mg PO HS [facility] - Labs Labs: 05/24/17 08:57 05/24/17 08:57 PT 11.1 SECONDS (9.7-12.2) 05/24/17 08:57 INR 1.0 05/24/17 08:57 APTT 83 SECONDS (21-34) H D 05/24/17 19:51 - Constitutional Appears: Well, No Acute Distress - Head Exam Head Exam: ATRAUMATIC, NORMOCEPHALIC - Eye Exam Eye Exam: Normal appearance - ENT Exam ENT Exam: Mucous Membranes Moist - Respiratory Exam Respiratory Exam: NORMAL BREATHING PATTERN - Cardiovascular Exam Cardiovascular Exam: RRR - GI/Abdominal Exam GI & Abdominal Exam: Soft. absent: Tenderness - Extremities Exam Extremities Exam: absent: Calf Tenderness, Pedal Edema, Tenderness - Neurological Exam Neurological Exam: Alert, Awake, Oriented x3 - Skin Skin Exam: Dry, Warm Assessment and Plan - Assessment and Plan (Free Text) Assessment: 66F with L common femoral DVT Plan: - cont heparin drip - no further surgical intervention needed at this time - d/w Dr. Júnior Benito, PGY-3
[2017-05-25] MEDS: (Novolin R) Insulin Human Regular 100 units/ml vial SC SCH ×5 (08:50→21:52)
[2017-05-25 08:54] LABS: BASO # 0.1 K/uL (0.0-0.2); BASO % 0.7 % (0.0-2.0); EOS # 0.4 K/uL (0.0-0.7); EOS % 4.2 % (0.0-4.0); HEMOGLOBIN 11.5 g/dL (11.0-16.0); LYMPH % 23.1 % (20.0-40.0); MEAN CELL VOLUME 84.8 fL (81.0-99.0); MEAN CORPUSCULAR HEMOGLOBIN 28.2 pg (27.0-31.0); MEAN CORPUSCULAR HGB CONC 33.2 g/dL (33.0-37.0); MEAN PLATELET VOLUME 9.4 fL (7.2-11.7); MONO # 0.4 K/uL (0.0-0.8); MONO % 4.3 % (0.0-10.0); NEUT # 5.9 K/uL (1.8-7.0); NEUT % 67.7 % (50.0-75.0); NRBC % 0.1 % (0.0-2.0); RBC 4.07 Mil/uL (3.80-5.20); RED CELL DISTRIBUTION WIDTH 14.5 % (11.5-14.5); WHITE BLOOD COUNT 8.8 K/uL (4.8-10.8)
[2017-05-25 09:04] LABS: ALB/GLOB RATIO 1.2 (1.0-2.1); ALBUMIN 4.1 g/dL (3.5-5.0); ALT/SGPT 26 U/L (9-52); AST/SGOT 22 U/L (14-36); BLOOD UREA NITROGEN 20 mg/dL (7-17); CALCIUM 8.9 mg/dl (8.6-10.4); GFR AFRICAN-AMERICAN > 60; GFR NON-AFRICAN AMERICAN > 60; HDL CHOLESTEROL 54 mg/dL (30-70)
[2017-05-25 09:15] LABS: LDL CHOLESTEROL 110 mg/dL (0-129)
[2017-05-25] MEDS ORDERED: Pneumococcal 23-Valent Vaccine IM ONE ×2 (10:00→13:18)
[2017-05-25] MEDS ORDERED: Heparin25000 units/250ml 1/2NS 25,000 UNITS/250 ML BAG IV PRN (10:16)
--- NOTE | 2017-05-25 10:50 | VASCLAB ---
PROCEDURE: Left Lower Extremity Venous Duplex Exam. HISTORY: Left lower leg pain, swelling PRIORS: None. TECHNIQUE: Left common femoral, femoral, popliteal and posterior tibial, peroneal and great saphenous veins were evaluated. Flow was assessed with color Doppler, compressibility, assessment of phasic flow and augmentation response. Report prepared by IBIS Childers FINDINGS: LEFT: 1. Common Femoral Vein: 1.1. Compressibility - Partial: Thrombus - Acute : Flow - Reduced : Augmentation -None: Reflux - None. 2. Femoral Vein: 2.1. Compressibility - Incompressible: Thrombus - Acute: Flow - Absent : Augmentation -None: Reflux - None. 3. Popliteal Vein: 3.1. Compressibility - Incompressible: Thrombus - Acute: Flow - Phasic: Augmentation -None: Reflux - None. 4. Posterior Tibial Vein: 4.1. Compressibility - Incompressible: Thrombus - Acute: Flow - Phasic: Augmentation -None: Reflux - None. 5. Peroneal Vein: 5.1. Compressibility - Incompressible: Thrombus - Acute: Flow - Phasic: Augmentation -None: Reflux - None. 6. Great Saphenous Vein: 6.1. Compressibility - Fully compressible: Thrombus - None: Flow - Phasic: Augmentation - None: Reflux - None. OTHER FINDINGS: IMPRESSION: Thrombus of the left common femoral, femoral, popliteal, posterior tibial and peroneal veins with absent venous flow. Normal venous flow noted in the right common femoral vein.
[2017-05-25] MEDS: Multiple Vitamins Tab PO SCH (11:07)
[2017-05-25] MEDS: Calcium-Vit D 500 mg-200 Units Tab UD PO SCH (11:07)
--- NOTE | 2017-05-25 16:10 | CP.PCM.PN ---
<Sariah Wagner - Last Filed: 05/25/17 16:07> Subjective - Date & Time of Evaluation Date of Evaluation: 05/25/17 Time of Evaluation: 07:30 - Subjective Subjective: Medicine progress for Dr. Cunha's service Patient was seen and examined at bedside in no acute distress. Patient reports feeling well and only complains of swelling in the left leg. Patient denies chest pain, abdominal pain, dyspnea, nausea, vomiting, fevers, headaches, dysuria, constipation. Objective - Vital Signs/Intake and Output Vital Signs (last 24 hours): Temp Pulse Resp BP Pulse Ox 98.2 F 80 20 106/70 96 05/25/17 07:42 05/25/17 07:42 05/25/17 07:42 05/25/17 07:42 05/25/17 07:42 Intake and Output: 05/25/17 05/25/17 06:59 18:59 Intake Total 300 250 Balance 300 250 - Medications Medications: Current Medications Apixaban (Eliquis) 10 mg PO BID [facility] Stop: 06/01/17 18:01 Aspirin (Aspirin Chewable) 81 mg PO DAILY [facility] Last Admin: 05/25/17 11:07 Dose: 81 mg Calcium/Vitamin D (Oyster Shell Calcium/Vitamin D 500 Mg-200 Iu) 1 tab PO DAILY [facility] Last Admin: 05/25/17 11:07 Dose: 1 tab Dextrose (Dextrose 50% Inj) 0 ml IV STAT PRN; Protocol PRN Reason: Hypoglycemia Protocol Dextrose (Glutose 15) 15 gm PO ONCE PRN; Protocol PRN Reason: Hypoglycemia Protocol Glucagon (Glucagen Diagnostic Kit) 1 mg IM STAT PRN; Protocol PRN Reason: Hypoglycemia Protocol Guaifenesin/Codeine Phosphate (Guaifenesin/Codeine) 5 ml PO Q6H PRN PRN Reason: Cough and congestion Hydrochlorothiazide (Microzide) 12.5 mg PO DAILY [facility] Last Admin: 05/25/17 11:07 Dose: Not Given Dextrose (Dextrose 5% In Water 1000 Ml) 1,000 mls @ 0 mls/hr IV .Q0M PRN; Protocol; Per Protocol PRN Reason: Hypoglycemia Protocol Insulin Human Regular (Novolin R) 0 unit SC ACHS [facility] PRN Reason: Protocol Last Admin: 05/25/17 13:31 Dose: 2 unit Lisinopril (Zestril) 10 mg PO DAILY [facility] Last Admin: 05/25/17 11:07 Dose: Not Given Multivitamins (Hexavitamin) 1 tab PO DAILY [facility] Last Admin: 05/25/17 11:07 Dose: 1 tab Rosuvastatin Calcium (Crestor) 10 mg PO HS [facility] - Labs Labs: 05/25/17 08:38 05/25/17 08:38 PT 11.1 SECONDS (9.7-12.2) 05/24/17 08:57 INR 1.0 05/24/17 08:57 APTT 131 SECONDS (21-34) H* D 05/25/17 08:38 - Constitutional Appears: No Acute Distress - Head Exam Head Exam: ATRAUMATIC, NORMAL INSPECTION - Eye Exam Eye Exam: EOMI, Normal appearance - ENT Exam ENT Exam: Mucous Membranes Moist - Respiratory Exam Respiratory Exam: Clear to Ausculation Bilateral, NORMAL BREATHING PATTERN. absent: Rales, Rhonchi, Wheezes, Respiratory Distress - Cardiovascular Exam Cardiovascular Exam: REGULAR RHYTHM, +S1, +S2 - GI/Abdominal Exam GI & Abdominal Exam: Soft, Normal Bowel Sounds. absent: Distended, Firm, Tenderness - Extremities Exam Extremities Exam: Pedal Edema, Tenderness (behind the left knee) - Neurological Exam Neurological Exam: Alert, Awake, Oriented x3 - Psychiatric Exam Psychiatric exam: Normal Affect, Normal Mood - Skin Skin Exam: Dry, Intact, Normal Color, Warm Assessment and Plan - Assessment and Plan (Free Text) Plan: Assessment & Plan (1) Deep venous thrombosis of lower extremity Assessment and Plan: Duplex Scan of LE showed acute clot - Pending official report * Non-provoked - No significant immobilization, trauma or recent major surgery * Last mammogram 11/2016 normal. No prior colonoscopy. Reports 10 lb weight loss in last 6 months. Denies fatigue. Consult Heme, Dr Ramirez. Will follow recs. Consult Vascular, Dr Callejas. Will follow recs. Labs/Diagnostics: F/U YANCY screen, Antithrombin III Ab, Factor V, Lupus Anticoag, Protein C activity and Ag, Protein S activity and Ag, Prothrombin Gene, Antiphospholipid Ab Imaging: CT abd/pelvis w/ IV contrast- negative for PE, infiltrate, mass F/U echo to r/u right heart strain Meds: Heparin drip DVT protocol--> discontinued on 05/25/17 Eliquis 10mg PO BID for 7 days started on 05/25/17, followed by Eliquis 5mg PO daily (2) Cough Assessment and Plan: Complains of dry cough CXR: No active disease Blood Cx: negative Legionella; influenza: negative F/U Mycoplasma Meds: Gauifenesin 5ml PO Q6H PRN (3) Non-insulin dependent type 2 diabetes mellitus Assessment and Plan: HOLD home metformin 1000mg PO BID due to imaging Accuchecks ACHS ISS - medium dose Hypoglycemia protocol (4) Hypertension Assessment and Plan: BP well controlled Cont home med Lisinopril 10mg PO QD Cont home med HCTZ 12.5mg PO QD (5) Hyperlipidemia Assessment and Plan: Cont home med Simvastatin 40mg PO QD * Pharmacy will switch to Crestor (6) PAD (peripheral artery disease) Assessment and Plan: Cont home med Pentoxifylline 400mg PO BID Cont home aspirin 81mg PO QD (7) Prophylactic measure Assessment and Plan: Heart healthy diet with mod carb consistent No GI prophylaxis indicated Switching to Eliquis for DVT SCDs contraindicated Cont home MV <Huber Cunha - Last Filed: 05/25/17 18:50> Objective - Vital Signs/Intake and Output Vital Signs (last 24 hours): Temp Pulse Resp BP Pulse Ox 98.1 F 75 20 124/82 98 05/25/17 16:00 05/25/17 16:00 05/25/17 16:00 05/25/17 16:00 05/25/17 16:00 Intake and Output: 05/25/17 05/25/17 06:59 18:59 Intake Total 300 250 Balance 300 250 - Medications Medications: Current Medications Apixaban (Eliquis) 10 mg PO BID [facility] Stop: 06/01/17 18:01 Last Admin: 05/25/17 17:19 Dose: 10 mg Aspirin (Aspirin Chewable) 81 mg PO DAILY [facility] Last Admin: 05/25/17 11:07 Dose: 81 mg Calcium/Vitamin D (Oyster Shell Calcium/Vitamin D 500 Mg-200 Iu) 1 tab PO DAILY [facility] Last Admin: 05/25/17 11:07 Dose: 1 tab Dextrose (Dextrose 50% Inj) 0 ml IV STAT PRN; Protocol PRN Reason: Hypoglycemia Protocol Dextrose (Glutose 15) 15 gm PO ONCE PRN; Protocol PRN Reason: Hypoglycemia Protocol Glucagon (Glucagen Diagnostic Kit) 1 mg IM STAT PRN; Protocol PRN Reason: Hypoglycemia Protocol Guaifenesin (Robitussin) 100 mg PO Q4H PRN PRN Reason: Cough Hydrochlorothiazide (Microzide) 12.5 mg PO DAILY [facility] Last Admin: 05/25/17 11:07 Dose: Not Given Dextrose (Dextrose 5% In Water 1000 Ml) 1,000 mls @ 0 mls/hr IV .Q0M PRN; Protocol; Per Protocol PRN Reason: Hypoglycemia Protocol Insulin Human Regular (Novolin R) 0 unit SC ACHS [facility] PRN Reason: Protocol Last Admin: 05/25/17 17:19 Dose: 6 unit Lisinopril (Zestril) 10 mg PO DAILY [facility] Last Admin: 05/25/17 11:07 Dose: Not Given Multivitamins (Hexavitamin) 1 tab PO DAILY [facility] Last Admin: 05/25/17 11:07 Dose: 1 tab Rosuvastatin Calcium (Crestor) 10 mg PO HS [facility] - Labs Labs: 05/25/17 08:38 05/25/17 08:38 PT 11.1 SECONDS (9.7-12.2) 05/24/17 08:57 INR 1.0 05/24/17 08:57 APTT 92 SECONDS (21-34) H D 05/25/17 16:31 Attending/Attestation - Attestation I have personally seen and examined this patient.: Yes I have fully participated in the care of the patient.: Yes I have reviewed all pertinent clinical information, including history, physical exam and plan: Yes Notes (Text): 05/25/17 18:48 Patient was seen and examined at 2:40 PM 05/25/17 Discontinue Heparin Drip Start Eliquis 10 mg PO 2x/day for 7 days followed by 5 mg PO 2x/day We will discharge patient on morning 05/26/17. Huber Cunha D.O.
[2017-05-25] MEDS ORDERED: guaiFENesin 100 mg/5 ml Syrup UD PO PRN (16:21)
--- NOTE | 2017-05-25 22:31 | CARD ---
APPROVED REPORT EXAM: Two-dimensional and M-mode echocardiogram with Doppler and color Doppler. Other Information Quality : GoodRhythm : INDICATION CHECK FOR RIGHT HEART STRAIN RISK FACTORS Hypertension Hyperlipidemia Diabetes 2D DIMENSIONS IVSd0.8 (0.7-1.1cm)LVDd3.5 (3.9-5.9cm) PWd0.8 (0.7-1.1cm)LVDs2.4 (2.5-4.0cm) FS (%) 30.5 %LVEF (%)59.0 (>50%) M-Mode DIMENSIONS RVDd1.88 (2.1-3.2cm)Left Atrium (MM)3.26 (2.5-4.0cm) IVSd0.93 (0.7-1.1cm)Aortic Root2.87 (2.2-3.7cm) LVDd4.01 (4.0-5.6cm)Aortic Cusp Exc.1.95 (1.5-2.0cm) PWd0.86 (0.7-1.1cm)FS (%) 27 % LVDs2.93 (2.0-3.8cm)LVEF (%)53 (>50%) Aortic Valve AI P 1/2 [id number] Mitral Valve MV E Bkviuqtk73.4cm/sMV A Fyxspyoi44.6cm/sE/A ratio0.8 TDI E/Lateral E'0.0E/Medial E'0.0 Tricuspid Valve TR Peak [id number]/sTR Peak [id number] LEFT VENTRICLE The left ventricle is normal size. There is normal left ventricular wall thickness. The left ventricular function is normal. The left ventricular ejection fraction is within the normal range. There is normal LV segmental wall motion. Transmitral Doppler flow pattern is abnormal. RIGHT VENTRICLE The right ventricle is normal size. ATRIA The left atrium size is normal. The right atrium size is normal. AORTIC VALVE The aortic valve is normal in structure. MITRAL VALVE Mitral regurgitation is trace to mild. TRICUSPID VALVE There is mild tricuspid regurgitation. <Conclusion> Normal LV systolic function. Diastolic dysfunction. Trcae MR. MildTR.
[2017-05-26 07:28] LABS: BASO % 0.6 % (0.0-2.0); EOS # 0.4 K/uL (0.0-0.7); EOS % 5.4 % (0.0-4.0); LYMPH # 1.6 K/uL (1.0-4.3); LYMPH % 22.3 % (20.0-40.0); MEAN CELL VOLUME 84.7 fL (81.0-99.0); MEAN CORPUSCULAR HEMOGLOBIN 27.8 pg (27.0-31.0); MEAN CORPUSCULAR HGB CONC 32.8 g/dL (33.0-37.0); MEAN PLATELET VOLUME 9.1 fL (7.2-11.7); MONO # 0.5 K/uL (0.0-0.8); MONO % 6.1 % (0.0-10.0); NEUT # 4.9 K/uL (1.8-7.0); NEUT % 65.6 % (50.0-75.0); RBC 3.96 Mil/uL (3.80-5.20); RED CELL DISTRIBUTION WIDTH 14.4 % (11.5-14.5); WHITE BLOOD COUNT 7.4 K/uL (4.8-10.8)
[2017-05-26 07:29] LABS: ALB/GLOB RATIO 1.2 (1.0-2.1); ALBUMIN 3.8 g/dL (3.5-5.0); ALT/SGPT 21 U/L (9-52); AST/SGOT 20 U/L (14-36); BLOOD UREA NITROGEN 21 mg/dL (7-17); CALCIUM 8.7 mg/dl (8.6-10.4); GFR AFRICAN-AMERICAN > 60; GFR NON-AFRICAN AMERICAN > 60
[2017-05-26 07:34] VITALS: BP 107/72; PULSE 83; TEMP 98.2; O2SAT 96
[2017-05-26] MEDS: (Novolin R) Insulin Human Regular 100 units/ml vial SC SCH ×2 (09:25→11:30)
[2017-05-26] MEDS: Calcium-Vit D 500 mg-200 Units Tab UD PO SCH (09:25)
[2017-05-26] MEDS: Multiple Vitamins Tab PO SCH (09:25)
--- NOTE | 2017-05-26 11:09 | CP.PCM.PN ---
Subjective - Date & Time of Evaluation Date of Evaluation: 05/26/17 Time of Evaluation: 11:00 - Subjective Subjective: Hospitalist Progress Note Patient was seen and examined at 11:00 AM Upon FULL ROS NO dysphagia/odynopahgia NO soreness in throat (+) Cough occasionally productive NO lightheadedness NO chest pain/palpations NO SOB NO abdominal pain NO n/v/d/c NO burning pain with urination (+) Mild Headache (+) Constipation: has not moved bowels now for 3 days Exam: General: AAOX3, NAD HEENT: NCA, EOMI, PERRLA, NO cervical/supraclavicular/submandibular lymphadenopathy, NO pharyngeal erythema/exudate, Nasal Turbinates are nonerythematous/nonedematous, Oral Mucosa is moist Cardio: NS1 and NS2, NO M/R/G. There appears to be extra beat occasionally upon inspiration Resp: CTA B/L, NO R/R/W GI: BSx4, Soft, NT, NO HSM, NO guarding/rebound tenderness Ext: Pulses are strong and equal, Capillary Refill is 2 seconds, NO edema Neuro: CN II through XII are grossly intact Assessments: 1). Left Leg DVT 2). Cough 3). NIDDM 4). HTN Await EKG Dose of Mag Citrate for constipation As long as EKG shows no issues then stable for discharge Objective - Vital Signs/Intake and Output Vital Signs (last 24 hours): Temp Pulse Resp BP Pulse Ox 98.2 F 83 20 107/72 96 05/26/17 07:33 05/26/17 07:33 05/26/17 07:33 05/26/17 07:33 05/26/17 07:33 Intake and Output: 05/26/17 05/26/17 06:59 18:59 Intake Total 362 Balance 362 - Medications Medications: Current Medications Apixaban (Eliquis) 10 mg PO BID [facility] Stop: 06/01/17 18:01 Last Admin: 05/26/17 09:25 Dose: 10 mg Aspirin (Aspirin Chewable) 81 mg PO DAILY [facility] Last Admin: 05/26/17 09:25 Dose: 81 mg Calcium/Vitamin D (Oyster Shell Calcium/Vitamin D 500 Mg-200 Iu) 1 tab PO DAILY [facility] Last Admin: 05/26/17 09:25 Dose: 1 tab Dextrose (Dextrose 50% Inj) 0 ml IV STAT PRN; Protocol PRN Reason: Hypoglycemia Protocol Dextrose (Glutose 15) 15 gm PO ONCE PRN; Protocol PRN Reason: Hypoglycemia Protocol Glucagon (Glucagen Diagnostic Kit) 1 mg IM STAT PRN; Protocol PRN Reason: Hypoglycemia Protocol Guaifenesin (Robitussin) 100 mg PO Q4H PRN PRN Reason: Cough Hydrochlorothiazide (Microzide) 12.5 mg PO DAILY [facility] Last Admin: 05/26/17 09:26 Dose: Not Given Dextrose (Dextrose 5% In Water 1000 Ml) 1,000 mls @ 0 mls/hr IV .Q0M PRN; Protocol; Per Protocol PRN Reason: Hypoglycemia Protocol Insulin Human Regular (Novolin R) 0 unit SC ACHS [facility] PRN Reason: Protocol Last Admin: 05/26/17 09:25 Dose: 1 unit Lisinopril (Zestril) 10 mg PO DAILY [facility] Last Admin: 05/26/17 09:26 Dose: Not Given Multivitamins (Hexavitamin) 1 tab PO DAILY [facility] Last Admin: 05/26/17 09:25 Dose: 1 tab Rosuvastatin Calcium (Crestor) 10 mg PO HS [facility] Last Admin: 05/25/17 21:51 Dose: 10 mg - Labs Labs: 05/26/17 07:08 05/26/17 07:08 PT 11.1 SECONDS (9.7-12.2) 05/24/17 08:57 INR 1.0 05/24/17 08:57 APTT 92 SECONDS (21-34) H D 05/25/17 16:31
[2017-05-26] MEDS ORDERED: Magnesium Citrate Oral SOL (300 ml) PO ONE (11:10)
--- NOTE | 2017-05-26 11:34 | CP.PCM.DIS ---
<Sariah Wagner - Last Filed: 05/26/17 16:23> Provider - Provider Date of Admission: 05/24/17 11:10 Attending physician: Huber Cunha MD Primary care physician: Dr. Stark Consults: Surgery: Dr. Callejas Hem/Onc: Dr. Ramirez Time Spent in preparation of Discharge (in minutes): 45 Hospital Course - Lab Results Lab Results: Micro Results 05/24/17 08:45 Blood Blood Culture - Preliminary NO GROWTH AFTER 24 HOURS 05/24/17 09:15 Blood Blood Culture - Preliminary NO GROWTH AFTER 24 HOURS Most Recent Lab Values WBC 7.4 K/uL (4.8-10.8) 05/26/17 07:08 RBC 3.96 Mil/uL (3.80-5.20) 05/26/17 07:08 Hgb 11.0 g/dL (11.0-16.0) 05/26/17 07:08 Hct 33.6 % (34.0-47.0) L 05/26/17 07:08 MCV 84.7 fL (81.0-99.0) 05/26/17 07:08 MCH 27.8 pg (27.0-31.0) 05/26/17 07:08 MCHC 32.8 g/dL (33.0-37.0) L 05/26/17 07:08 RDW 14.4 % (11.5-14.5) 05/26/17 07:08 Plt Count 280 K/uL (130-400) 05/26/17 07:08 MPV 9.1 fL (7.2-11.7) 05/26/17 07:08 Neut % (Auto) 65.6 % (50.0-75.0) 05/26/17 07:08 Lymph % (Auto) 22.3 % (20.0-40.0) 05/26/17 07:08 [place] % (Auto) 6.1 % (0.0-10.0) 05/26/17 07:08 Eos % (Auto) 5.4 % (0.0-4.0) H 05/26/17 07:08 Baso % (Auto) 0.6 % (0.0-2.0) 05/26/17 07:08 Neut # (Auto) 4.9 K/uL (1.8-7.0) 05/26/17 07:08 Lymph # (Auto) 1.6 K/uL (1.0-4.3) 05/26/17 07:08 [place] # (Auto) 0.5 K/uL (0.0-0.8) 05/26/17 07:08 Eos # (Auto) 0.4 K/uL (0.0-0.7) 05/26/17 07:08 Baso # (Auto) 0.0 K/uL (0.0-0.2) 05/26/17 07:08 PT 11.1 SECONDS (9.7-12.2) 05/24/17 08:57 INR 1.0 05/24/17 08:57 APTT 92 SECONDS (21-34) H D 05/25/17 16:31 Sodium 141 mmol/L (132-148) 05/26/17 07:08 Potassium 4.5 mmol/L (3.6-5.2) 05/26/17 07:08 Chloride 105 mmol/L (98-107) 05/26/17 07:08 Carbon Dioxide 24 mmol/L (22-30) 05/26/17 07:08 Anion Gap 16 (10-20) 05/26/17 07:08 BUN 21 mg/dL (7-17) H 05/26/17 07:08 Creatinine 0.8 mg/dL (0.7-1.2) 05/26/17 07:08 Est GFR ( Amer) > 60 05/26/17 07:08 Est GFR (Non-Af Amer) > 60 05/26/17 07:08 POC Glucose (mg/dL) 200 mg/dL (65-110) H 05/26/17 11:04 Random Glucose 163 mg/dL (65-105) H 05/26/17 07:08 Hemoglobin A1c 8.0 % (4.2-6.5) H 05/25/17 08:38 Calcium 8.7 mg/dl (8.6-10.4) 05/26/17 07:08 Phosphorus 3.6 mg/dL (2.5-4.5) 05/25/17 08:38 Magnesium 1.6 mg/dL (1.6-2.3) 05/25/17 08:38 Total Bilirubin 0.3 mg/dL (0.2-1.3) 05/26/17 07:08 AST 20 U/L (14-36) 05/26/17 07:08 ALT 21 U/L (9-52) 05/26/17 07:08 Alkaline Phosphatase 74 U/L (38-126) 05/26/17 07:08 Total Protein 7.0 g/dL (6.3-8.3) 05/26/17 07:08 Albumin 3.8 g/dL (3.5-5.0) 05/26/17 07:08 Globulin 3.2 gm/dL (2.2-3.9) 05/26/17 07:08 Albumin/Globulin Ratio 1.2 (1.0-2.1) 05/26/17 07:08 Triglycerides 158 mg/dL (0-149) H 05/25/17 08:38 Cholesterol 192 mg/dL (0-199) 05/25/17 08:38 LDL Cholesterol Direct 110 mg/dL (0-129) 05/25/17 08:38 HDL Cholesterol 54 mg/dL (30-70) 05/25/17 08:38 Urine Color Yellow (YELLOW) 05/24/17 09:51 Urine Clarity Hazy (Clear) 05/24/17 09:51 Urine pH 5.0 (5.0-8.0) 05/24/17 09:51 Ur Specific [place] 1.026 (1.003-1.030) 05/24/17 09:51 Urine Protein Negative mg/dL (NEGATIVE) 05/24/17 09:51 Urine Glucose (UA) 2+ mg/dL (Normal) H 05/24/17 09:51 Urine Ketones Negative mg/dL (NEGATIVE) 05/24/17 09:51 Urine Blood Negative (NEGATIVE) 05/24/17 09:51 Urine Nitrate Negative (NEGATIVE) 05/24/17 09:51 Urine Bilirubin Negative (NEGATIVE) 05/24/17 09:51 Urine Urobilinogen Normal mg/dL (0.2-1.0) 05/24/17 09:51 Ur Leukocyte Esterase Neg Juni/uL (Negative) 05/24/17 09:51 Urine WBC (Auto) 1 /hpf (0-5) 05/24/17 09:51 Urine RBC (Auto) 1 /hpf (0-3) 05/24/17 09:51 Ur Squamous Epith Cells 4 /hpf (0-5) 05/24/17 09:51 Influenza Typ A,B (EIA) Negative for flu a/b (NEGATIVE) 05/24/17 12:47 Ur L.pneumophila Ag Negative (NEGATIVE) 05/24/17 13:51 - Hospital Course Hospital Course: CC: "My leg hurts" HPI: Mrs Osorio is a 66 year old female with a PMHx of HTN, NIDDM, OA, gastritis, hyperlipidemia, who presents to [facility] for left leg pain from the knee down to the calf with the pain ending above her left ankle. She states the pain started 4 days ago abruptly. She denies recent travel or recent immobilization. She denies recent hospitalization. The pain is most prominent in the medial aspect of her left knee. She states she went to a clinic in [place] yesterday and was referred to the ED. She denies shortness of breath. Additionally, she complains of a dry cough that also began 4 days ago. She endorsed weight loss of 10 lbs in the last 6 months. She denies feeling fatigued , chest pain, nausea, vomiting, fever, diarrhea, dysuria, or flank pain. At baseline patient is able to ambulate without difficulty. Her last mammogram in was normal. She has never had a colonoscopy. 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 In the ED, venous dopplers were performed and showed a thrombus of the left common femoral , femoral, popliteal, posterior tibial and peroneal veins; normal venous flow in right common femoral vein. Heparin drip was started. DVT was non-provoked ( no significant immobilization, trauma or recent major surgery). Ordered YANCY screen, Antithrombin III Ab, Factor V, Lupus Anticoag, Protein C activity and Ag , Protein S activity and Ag, Prothrombin Gene, Antiphospholipid Ab. Patient must follow up with [facility], Dr. Klein for results as they were a send out. Abdomen/ Pelvic CT ordered and was negative for PE, infiltrate, and masses. Echocardiogram was ordered to rule out right heart strain, and showed normal LV systolic function, diastolic dysfunction; trace MR, mild TR. Heparin drip was stopped and patient was started on Eliquis. Patient also complained of a cough. Chest xray showed no active disease, blood cultures were negative, legionella, and influenza were negative. Patient was started on robitussin. Patient's IDDM, hypertention, and hyperlipidemia were monitored and managed throughout hospital course. Patient is stable for discharge to home. Patient must take Eliquis as prescribed, and mustfollow up with PMD, Dr. Klein, on June 17, 2017. This is a brief summary of the hospital course. Please see EMR for more details. Discharge Exam - Additional Findings Additional findings: - Constitutional Appears: No Acute Distress - Head Exam Head Exam: ATRAUMATIC, NORMAL INSPECTION - Eye Exam Eye Exam: EOMI, Normal appearance - ENT Exam ENT Exam: Mucous Membranes Moist - Respiratory Exam Respiratory Exam: Clear to Ausculation Bilateral, NORMAL BREATHING PATTERN. absent: Rales, Rhonchi, Wheezes, Respiratory Distress - Cardiovascular Exam Cardiovascular Exam: REGULAR RHYTHM, +S1, +S2 - GI/Abdominal Exam GI & Abdominal Exam: Soft, Normal Bowel Sounds. absent: Distended, Firm, Tenderness - Extremities Exam Extremities Exam: Pedal Edema. absent: Tenderness - Neurological Exam Neurological Exam: Alert, Awake, Oriented x3 - Psychiatric Exam Psychiatric exam: Normal Affect, Normal Mood - Skin Skin Exam: Dry, Intact, Normal Color, Warm Discharge Plan - Discharge Medications Prescriptions: Alogliptin Derrick/Metformin HCl [Kazano 12.5-1,000 mg Tablet] 1 each PO BID #60 tablet Apixaban [Eliquis] 5 mg PO BID #60 tablet Apixaban [Eliquis] 10 mg PO BID #12 tab Aspirin 81 mg PO DAILY #30 tab.chew Atorvastatin [Lipitor] 10 mg PO DIN #30 tab Docusate [Colace] 100 mg PO BID #15 cap guaiFENesin [Robitussin] 100 mg PO Q4H PRN #1 bottle PRN Reason: Cough Lisinopril/Hydrochlorothiazide [Lisinopril-Hctz 10-12.5 mg Tab] 1 each PO DAILY #30 tablet - Follow Up Plan Condition: STABLE Disposition: HOME/ ROUTINE Instructions: Deep Vein Thrombosis (Blood Clots in the Legs), Deep Vein Thrombosis (Blood Clots in the Legs) (DC), Apixaban, Alogliptin, Aspirin, Atorvastatin, Docusate, Guaifenesin, Lisinopril, How to Prevent Blood Clots Additional Instructions: Patient is stable for discharge to home. Patient must continue taking the following home medications: - Aspirin 81mg PO daily (prescription provided) - Kazano 12.5/1000mg PO BID (prescription provided) - Lisinopril-HCTZ 10mg-12.5mg once a day (with breakfast) (prescription provided) - Calcium/Vitamin D [Please take over the counter Calcium/Vitamin D 600mg/1000u - take 1 tab twice a day (with breakfast and dinner)] - Multivitamin daily Patient must stop taking Pentoxifylline (Pentoxil) 400mg. Patient must take new medications as prescribed: 1. Eliquis 10mg PO BID-take 2 tablet twice a day (1 tab at breakfast, 1 tab at dinner), last dose on 05/31/17. 2. Eliquis 5mg PO BID- take 1 tablet twice a day (1 tab at breakfast, 1 tab at dinner), first dose starting on 06/01/17. *Patient provided with enough samples until appointment with PMD, Dr. Klein. 3. Robitussin cough syrup- take 5ml by mouth every 6 hours, as needed for cough 3. Colace 100mg BID- take 1 tablet twice a day (with breakfast and dinner) until you have a bowel movement 4. Atorvastatin 10mg PO HS- take 1 tablet with dinner every day Please follow up with PMD, Dr. Klein, on June 17, 2017 at 3:15pm. Patient must follow up special blood tests that were sent out with Dr. Klein on June 17, 2017. If symptoms worsen or reoccur, patient should return to the ED. <Huber Cunha - Last Filed: 05/26/17 19:43> Provider - Provider Date of Admission: 05/24/17 11:10 Attending physician: Huber Cunha MD Time Spent in preparation of Discharge (in minutes): 40 Hospital Course - Lab Results Lab Results: Micro Results 05/24/17 08:45 Blood Blood Culture - Preliminary NO GROWTH AFTER 48 HOURS 05/24/17 09:15 Blood Blood Culture - Preliminary NO GROWTH AFTER 48 HOURS Most Recent Lab Values WBC 7.4 K/uL (4.8-10.8) 05/26/17 07:08 RBC 3.96 Mil/uL (3.80-5.20) 05/26/17 07:08 Hgb 11.0 g/dL (11.0-16.0) 05/26/17 07:08 Hct 33.6 % (34.0-47.0) L 05/26/17 07:08 MCV 84.7 fL (81.0-99.0) 05/26/17 07:08 MCH 27.8 pg (27.0-31.0) 05/26/17 07:08 MCHC 32.8 g/dL (33.0-37.0) L 05/26/17 07:08 RDW 14.4 % (11.5-14.5) 05/26/17 07:08 Plt Count 280 K/uL (130-400) 05/26/17 07:08 MPV 9.1 fL (7.2-11.7) 05/26/17 07:08 Neut % (Auto) 65.6 % (50.0-75.0) 05/26/17 07:08 Lymph % (Auto) 22.3 % (20.0-40.0) 05/26/17 07:08 [place] % (Auto) 6.1 % (0.0-10.0) 05/26/17 07:08 Eos % (Auto) 5.4 % (0.0-4.0) H 05/26/17 07:08 Baso % (Auto) 0.6 % (0.0-2.0) 05/26/17 07:08 Neut # (Auto) 4.9 K/uL (1.8-7.0) 05/26/17 07:08 Lymph # (Auto) 1.6 K/uL (1.0-4.3) 05/26/17 07:08 [place] # (Auto) 0.5 K/uL (0.0-0.8) 05/26/17 07:08 Eos # (Auto) 0.4 K/uL (0.0-0.7) 05/26/17 07:08 Baso # (Auto) 0.0 K/uL (0.0-0.2) 05/26/17 07:08 PT 11.1 SECONDS (9.7-12.2) 05/24/17 08:57 INR 1.0 05/24/17 08:57 APTT 92 SECONDS (21-34) H D 05/25/17 16:31 Sodium 141 mmol/L (132-148) 05/26/17 07:08 Potassium 4.5 mmol/L (3.6-5.2) 05/26/17 07:08 Chloride 105 mmol/L (98-107) 05/26/17 07:08 Carbon Dioxide 24 mmol/L (22-30) 05/26/17 07:08 Anion Gap 16 (10-20) 05/26/17 07:08 BUN 21 mg/dL (7-17) H 05/26/17 07:08 Creatinine 0.8 mg/dL (0.7-1.2) 05/26/17 07:08 Est GFR ( Amer) > 60 05/26/17 07:08 Est GFR (Non-Af Amer) > 60 05/26/17 07:08 POC Glucose (mg/dL) 200 mg/dL (65-110) H 05/26/17 11:04 Random Glucose 163 mg/dL (65-105) H 05/26/17 07:08 Hemoglobin A1c 8.0 % (4.2-6.5) H 05/25/17 08:38 Calcium 8.7 mg/dl (8.6-10.4) 05/26/17 07:08 Phosphorus 3.6 mg/dL (2.5-4.5) 05/25/17 08:38 Magnesium 1.6 mg/dL (1.6-2.3) 05/25/17 08:38 Total Bilirubin 0.3 mg/dL (0.2-1.3) 05/26/17 07:08 AST 20 U/L (14-36) 05/26/17 07:08 ALT 21 U/L (9-52) 05/26/17 07:08 Alkaline Phosphatase 74 U/L (38-126) 05/26/17 07:08 Total Protein 7.0 g/dL (6.3-8.3) 05/26/17 07:08 Albumin 3.8 g/dL (3.5-5.0) 05/26/17 07:08 Globulin 3.2 gm/dL (2.2-3.9) 05/26/17 07:08 Albumin/Globulin Ratio 1.2 (1.0-2.1) 05/26/17 07:08 Triglycerides 158 mg/dL (0-149) H 05/25/17 08:38 Cholesterol 192 mg/dL (0-199) 05/25/17 08:38 LDL Cholesterol Direct 110 mg/dL (0-129) 05/25/17 08:38 HDL Cholesterol 54 mg/dL (30-70) 05/25/17 08:38 Urine Color Yellow (YELLOW) 05/24/17 09:51 Urine Clarity Hazy (Clear) 05/24/17 09:51 Urine pH 5.0 (5.0-8.0) 05/24/17 09:51 Ur Specific [place] 1.026 (1.003-1.030) 05/24/17 09:51 Urine Protein Negative mg/dL (NEGATIVE) 05/24/17 09:51 Urine Glucose (UA) 2+ mg/dL (Normal) H 05/24/17 09:51 Urine Ketones Negative mg/dL (NEGATIVE) 05/24/17 09:51 Urine Blood Negative (NEGATIVE) 05/24/17 09:51 Urine Nitrate Negative (NEGATIVE) 05/24/17 09:51 Urine Bilirubin Negative (NEGATIVE) 05/24/17 09:51 Urine Urobilinogen Normal mg/dL (0.2-1.0) 05/24/17 09:51 Ur Leukocyte Esterase Neg Juni/uL (Negative) 05/24/17 09:51 Urine WBC (Auto) 1 /hpf (0-5) 05/24/17 09:51 Urine RBC (Auto) 1 /hpf (0-3) 05/24/17 09:51 Ur Squamous Epith Cells 4 /hpf (0-5) 05/24/17 09:51 Influenza Typ A,B (EIA) Negative for flu a/b (NEGATIVE) 05/24/17 12:47 Ur L.pneumophila Ag Negative (NEGATIVE) 05/24/17 13:51 Attending/Attestation - Attestation I have personally seen and examined this patient.: Yes I have fully participated in the care of the patient.: Yes I have reviewed all pertinent clinical information, including history, physical exam and plan: Yes Notes (Text): 05/26/17 19:42 Patient was seen and examined with resident. Exam, assessment and plan, and discharge instructions were gone over with the resident. Huber Cunha D.O.
[2017-05-26] MEDS ORDERED: Influenza Vaccine 60 mcg/0.5 mL SYR (4YR UP) IM ONE (11:51)
--- NOTE | 2017-05-26 12:12 | CP.PCM.CON ---
History of Present Illness - History of Present Illness History of Present Illness: 66 year old female with a history of HTN, DM, HL, presented with LLE swelling found to have extensive venous clotting of the left lower extremity. The patient reports to sudden swelling and pain in the left leg for about 3-4 days. The swelling and pain continued to worsen which prompted her to come to the ER. In the ER she was found to have extensive venous clotting involving the left femoral vein and progressing distally. She has been receiving therapeutic anticoagulation and notes to improvement in her pain and swelling. She denies shortness of breath and chest pain. She notes to being active and continues to work. She denies immobility or trauma to her leg. Past medical history: HTN, DM, HL Past surgical history: None Family history: Denies hematologic and oncologic problems Social history: Denies tobacco, alcohol, and illicit drug use. Allergies: NKA Review of systems: All remaining review of systems including HEENT, cardiovascular, respiratory, gastrointestinal, genitourinary, musculoskeletal, dermatologic, neurologic, and psychiatric are negative unless mentioned in the HPI. Past Patient History - Infectious Disease Hx of Infectious Diseases: None - Past Medical History & Family History Past Medical History?: Yes - Past Social History Smoking Status: Never Smoked - CARDIAC Hx Hypercholesterolemia: Yes Hx Hypertension: Yes - ENDOCRINE/METABOLIC Hx Diabetes Mellitus Type 2: Yes - MUSCULOSKELETAL/RHEUMATOLOGICAL Hx Falls: Yes - GASTROINTESTINAL Hx Gastritis: Yes ("chronic") - GENITOURINARY/GYNECOLOGICAL Hx Genitourinary Disorders: Yes Other/Comment: Descent of the ovaries. - PSYCHIATRIC Hx Substance Use: No - SURGICAL HISTORY Hx Appendectomy: Yes - ANESTHESIA Hx Anesthesia: Yes Hx Anesthesia Reactions: No Meds Home Medications: Home Medication List Medication Instructions Recorded Confirmed Type Alogliptin Derrick/Metformin HCl 1 each PO BID #60 tablet 05/26/17 Rx [Kazano 12.5-1,000 mg Tablet] Apixaban [Eliquis] 5 mg PO BID #60 tablet 05/26/17 Rx Apixaban [Eliquis] 10 mg PO BID #12 tab 05/26/17 Rx Aspirin 81 mg PO DAILY #30 tab.chew 05/26/17 Rx Aspirin [Aspirin Chewable] 81 mg PO DAILY chew 05/26/17 Rx Atorvastatin [Lipitor] 10 mg PO DIN #30 tab 05/26/17 Rx Docusate [Colace] 100 mg PO BID #15 cap 05/26/17 Rx Lisinopril/Hydrochlorothiazide 1 each PO DAILY #30 tablet 05/26/17 Rx [Lisinopril-Hctz 10-12.5 mg Tab] guaiFENesin [Robitussin] 100 mg PO Q4H PRN #1 bottle 05/26/17 Rx hydroCHLOROthiazide [Microzide] 12.5 mg PO DAILY cap 05/26/17 Rx Allergies/Adverse Reactions: Allergies Allergy/AdvReac Type Severity Reaction Status Date / Time No Known Allergies Allergy Verified 05/24/17 08:14 - Medications Medications: Current Medications Apixaban (Eliquis) 10 mg PO BID [facility] Stop: 06/01/17 18:01 Last Admin: 05/26/17 09:25 Dose: 10 mg Aspirin (Aspirin Chewable) 81 mg PO DAILY [facility] Last Admin: 05/26/17 09:25 Dose: 81 mg Calcium/Vitamin D (Oyster Shell Calcium/Vitamin D 500 Mg-200 Iu) 1 tab PO DAILY [facility] Last Admin: 05/26/17 09:25 Dose: 1 tab Dextrose (Dextrose 50% Inj) 0 ml IV STAT PRN; Protocol PRN Reason: Hypoglycemia Protocol Dextrose (Glutose 15) 15 gm PO ONCE PRN; Protocol PRN Reason: Hypoglycemia Protocol Glucagon (Glucagen Diagnostic Kit) 1 mg IM STAT PRN; Protocol PRN Reason: Hypoglycemia Protocol Guaifenesin (Robitussin) 100 mg PO Q4H PRN PRN Reason: Cough Hydrochlorothiazide (Microzide) 12.5 mg PO DAILY [facility] Last Admin: 05/26/17 09:26 Dose: Not Given Dextrose (Dextrose 5% In Water 1000 Ml) 1,000 mls @ 0 mls/hr IV .Q0M PRN; Protocol; Per Protocol PRN Reason: Hypoglycemia Protocol Insulin Human Regular (Novolin R) 0 unit SC [facility] PRN Reason: Protocol Last Admin: 05/26/17 09:25 Dose: 1 unit Lisinopril (Zestril) 10 mg PO DAILY [facility] Last Admin: 05/26/17 09:26 Dose: Not Given Multivitamins (Hexavitamin) 1 tab PO DAILY [facility] Last Admin: 05/26/17 09:25 Dose: 1 tab Rosuvastatin Calcium (Crestor) 10 mg PO HS [facility] Last Admin: 05/25/17 21:51 Dose: 10 mg Physical Exam - Head Exam Head Exam: ATRAUMATIC - Eye Exam Eye Exam: Normal appearance - ENT Exam ENT Exam: Mucous Membranes Dry - Respiratory Exam Respiratory Exam: NORMAL BREATHING PATTERN - Cardiovascular Exam Cardiovascular Exam: +S1, +S2 - GI/Abdominal Exam GI & Abdominal Exam: Normal Bowel Sounds - Extremities Exam Extremities exam: Positive for: pedal edema - Neurological Exam Neurological exam: Oriented x3 - Psychiatric Exam Psychiatric exam: Normal Affect, Normal Mood - Skin Skin Exam: Warm Results - Vital Signs Recent Vital Signs: Last Vital Signs Temp 98.2 F 05/26/17 07:33 Pulse 83 05/26/17 07:33 Resp 20 05/26/17 07:33 BP 107/72 05/26/17 07:33 Pulse Ox 96 05/26/17 07:33 - Labs Result Diagrams: 05/26/17 07:08 05/26/17 07:08 Labs: Laboratory Results - last 24 hr 05/25/17 05/25/17 05/25/17 12:47 16:31 16:42 WBC RBC Hgb Hct MCV MCH MCHC RDW Plt Count MPV Neut % (Auto) Lymph % (Auto) [place] % (Auto) Eos % (Auto) Baso % (Auto) Neut # (Auto) Lymph # (Auto) [place] # (Auto) Eos # (Auto) Baso # (Auto) APTT 92 H D Sodium Potassium Chloride Carbon Dioxide Anion Gap BUN Creatinine Est GFR ( Amer) Est GFR (Non-Af Amer) POC Glucose (mg/dL) 162 H 303 H Random Glucose Calcium Total Bilirubin AST ALT Alkaline Phosphatase Total Protein Albumin Globulin Albumin/Globulin Ratio 05/25/17 05/26/17 05/26/17 21:07 07:08 07:08 WBC 7.4 RBC 3.96 Hgb 11.0 Hct 33.6 L MCV 84.7 MCH 27.8 MCHC 32.8 L RDW 14.4 Plt Count 280 MPV 9.1 Neut % (Auto) 65.6 Lymph % (Auto) 22.3 [place] % (Auto) 6.1 Eos % (Auto) 5.4 H Baso % (Auto) 0.6 Neut # (Auto) 4.9 Lymph # (Auto) 1.6 [place] # (Auto) 0.5 Eos # (Auto) 0.4 Baso # (Auto) 0.0 APTT Sodium 141 Potassium 4.5 Chloride 105 Carbon Dioxide 24 Anion Gap 16 BUN 21 H Creatinine 0.8 Est GFR ( Amer) > 60 Est GFR (Non-Af Amer) > 60 POC Glucose (mg/dL) 137 H Random Glucose 163 H Calcium 8.7 Total Bilirubin 0.3 AST 20 ALT 21 Alkaline Phosphatase 74 Total Protein 7.0 Albumin 3.8 Globulin 3.2 Albumin/Globulin Ratio 1.2 05/26/17 05/26/17 07:14 11:04 WBC RBC Hgb Hct MCV MCH MCHC RDW Plt Count MPV Neut % (Auto) Lymph % (Auto) [place] % (Auto) Eos % (Auto) Baso % (Auto) Neut # (Auto) Lymph # (Auto) [place] # (Auto) Eos # (Auto) Baso # (Auto) APTT Sodium Potassium Chloride Carbon Dioxide Anion Gap BUN Creatinine Est GFR ( Amer) Est GFR (Non-Af Amer) POC Glucose (mg/dL) 164 H 200 H Random Glucose Calcium Total Bilirubin AST ALT Alkaline Phosphatase Total Protein Albumin Globulin Albumin/Globulin Ratio Assessment & Plan (1) Deep venous thrombosis of lower extremity Assessment and Plan: unprovoked on therapeutic anticoagulation outpatient Eliquis outpatient f/u with me in 1-2 weeks Status: Acute Priority: High (2) Coagulopathy Assessment and Plan: secondary to anticoagulation Status: Acute (3) Anemia Assessment and Plan: mild outpatient anemia w/u in 1-2 weeks Thank you for this interesting consult. Status: Acute
[2017-05-27 14:51] LABS: B2 GLYCOPROTEIN I AB(IGA) <9 SAU (<=20); B2 GLYCOPROTEIN I AB(IGG) <9 SGU (<=20); B2 GLYCOPROTEIN I AB(IGM) <9 SMU (<=20); PHOSPHATIDYLSERINE AB IGA <20 U/mL (<20); PHOSPHATIDYLSERINE AB IGG <10 U/mL (<10); PHOSPHATIDYLSERINE AB IGM <25 U/mL (<25)
--- NOTE | 2017-05-27 21:41 | CARD ---
APPROVED REPORT EKG Measurement Heart [id number] <Conclusion> Normal sinus rhythm Nonspecific T wave abnormality Abnormal ECG
[2017-05-27 21:50] LABS: CARDIOLIPIN AB (IGA) <11 APL (<=11); CARDIOLIPIN AB (IGG) <14 GPL (<=14); CARDIOLIPIN AB (IGM) <12 MPL (<=12)
--- NOTE | 2017-05-27 23:37 | CARD ---
APPROVED REPORT EKG Measurement Heart [id number] <Conclusion> Normal sinus rhythm with sinus arrhythmia Nonspecific T wave abnormality Abnormal ECG
== END 2017-05-26 14:58 | disposition home or self-care (01) | DRG 130 ==
LOC: C.ER 08:11 → C.9E 11:10 → C.3T 11:59
PROVIDERS: ADMIT Family Medicine; ATTEND Family Medicine
DX: I82.412 Acute embolism and thrombosis of left femoral vein (principal); E11.51 Type 2 diabetes mellitus with diabetic peripheral angiopathy without gangrene; E78.00 Pure hypercholesterolemia, unspecified; R05 Cough; E78.5 Hyperlipidemia, unspecified; I10 Essential (primary) hypertension; K59.00 Constipation, unspecified; M81.0 Age-related osteoporosis without current pathological fracture; Z79.01 Long term (current) use of anticoagulants; Z79.4 Long term (current) use of insulin; Z79.82 Long term (current) use of aspirin; Z79.899 Other long term (current) drug therapy; Z83.3 Family history of diabetes mellitus